=== PATIENT | female | born 1930 | race Caucasian/White ===

== ENCOUNTER 2017-08-26 11:06 | Inpatient (IN) | payer MEDICARE ==
[~2017-08-26] VITALS: Ht 162.6 cm; Wt 52.4 kg
[2017-08-26] MEDS ORDERED: IV NS 0.9% 1,000 ML BAG IV ONE ×2 (11:30→12:00)
--- NOTE | 2017-08-26 11:30 | NUR ---
incresing confusion and fever since this morning, nad noted, vss, resp even and unlabored. pt was put on hospital gown and monitor. at bs.
[2017-08-26 11:34] LABS: BASOPHILS % (AUTO) 0.2 % (0.0-2.0); EOSINOPHILS % (AUTO) 1.4 % (0.0-6.0); HEMATOCRIT 31 % (33-45); HEMOGLOBIN 10.3 g/dL (11.5-14.8); LYMPHOCYTES # (AUTO) 0.2 /CMM (0.8-4.8); LYMPHOCYTES % (AUTO) 1.9 % (20.0-44.0); MEAN CORPUSCULAR HGB CONC 34 g/dl (31.0-36.0); MEAN CORPUSCULAR VOLUME 87 fL (82-100); MONOCYTES % (AUTO) 0.2 % (2.0-12.0); NEUTROPHILS # (AUTO) 12.6 /CMM (1.8-8.9); NEUTROPHILS % (AUTO) 96.3 % (43.0-81.0); PLATELET COUNT (AUTO) 210 /CMM (150-450); RDW COEFFICIENT OF VARIATION 15.3 (11.5-15.0); RED BLOOD CELL COUNT(AUTO) 3.55 MIL/uL (4.0-5.2)
[2017-08-26 11:40] LABS: CALCIUM, SERUM 9.1 mg/dL (8.5-10.1); CARBON DIOXIDE 20 mmol/L (21-32); CHLORIDE 102 mmol/L (98-107); GLUCOSE 120 mg/dL (74-106); POTASSIUM 3.8 mmol/L (3.5-5.1); SODIUM SERUM 136 mmol/L (136-145); UREA NITROGEN, BLOOD 43 mg/dL (7-18)
[2017-08-26 11:46] LABS: ALANINE AMINOTRANSFERASE 25 U/L (12-78); ALBUMIN 2.7 g/dL (3.4-5.0); ALKALINE PHOSPHATASE 296 U/L (46-116); ASPARTATE AMINOTRANSFERASE 37 U/L (15-37); BILIRUBIN,DIRECT 0.2 mg/dL (0.0-0.2); BILIRUBIN,TOTAL 0.4 mg/dL (0.2-1.0); TOTAL PROTEIN, SERUM 7.8 g/dL (6.4-8.2)
[2017-08-26 11:55] LABS: INR 1.01 (0.85-1.15)
[2017-08-26] MEDS ORDERED: PIPERACILLIN /TAZOBACTAM 3.375 G in IV D5W 50 ML IV ONE (12:00)
[2017-08-26] MEDS ORDERED: LORA0.5T PO (12:05)
[2017-08-26] MEDS ORDERED: GABA-534 PO (12:05)
[2017-08-26] MEDS ORDERED: CITA20TA16 PO (12:05)
[2017-08-26 12:10] LABS: BAND % (MANUAL) 15 % (0.0-5.0); LYMPHOCYTES % (MANUAL) 3 % (16-48); MONOCYTES % (MANUAL) 1 % (0-11.0); NEUTROPHILS % (MANUAL) 81 (42-76)
[2017-08-26 12:16] LABS: APPEARANCE,URINE Clear (CLEAR); BILIRUBIN,URINE Negative (NEGATIVE); BLOOD, URINE Moderate Ery/uL (NEGATIVE); COLOR,URINE Yellow (YELLOW); KETONES,URINE Negative (NEGATIVE); LEUKOCYTE ESTERASE ,URINE Small (NEGATIVE); NITRITE, URINE Positive (NEGATIVE); PROTEIN,URINE 100 mg/dl (NEGATIVE); UGLUCOSE Negative (NEGATIVE); UROBILINOGEN,URINE 0.2 EU/dL (0.2)
[2017-08-26 12:28] LABS: BACTERIA,URINE 3+ /HPF (None Seen); WBC,URINE 21-50 /HPF (0-3)
[2017-08-26 12:29] LABS: SQUAMOUS EPITHELIAL CELL,UR Few /HPF (None Seen)
--- NOTE | 2017-08-26 12:41 | NUR ---
CALLED NURSE SUP FOR TELE BED
[2017-08-26] MEDS ORDERED: Z GUARD REMEDY 2 OZ OINT TP PRN (13:00)
[2017-08-26] MEDS ORDERED: MAG HYDROX/AL HYDROX/SIMETH 30 ML UDC PO PRN (13:00)
[2017-08-26] MEDS ORDERED: ZOLPIDEM TARTRATE 5 MG TABLET PO PRN (13:00)
[2017-08-26] MEDS ORDERED: ONDANSETRON HCL/PF 4 MG/2 ML VIAL IVP PRN (13:00)
[2017-08-26] MEDS ORDERED: MAGNESIUM HYDROXIDE 30 ML UDC PO PRN (13:00)
[2017-08-26] MEDS: ASPIRIN 325 MG TABLET PO SCH (13:58)
[2017-08-26 14:00] VITALS: BP 118/65
[2017-08-26] MEDS: IV NS 0.9% 1,000 ML IV PRN (14:00)
--- NOTE | 2017-08-26 14:00 | NUR ---
BUCKET CHUCKER OPENING NOTES. PT RECEIVED A&0X2, AND LETHARGIC. PT WITH FAMILY AT BEDSIDE REPORTING PT IS NORMALLY A&0X3 AND LIVES INDEPENDENTLY. PT WITH O2 VIA NC AT 3LPM, PT DENIES SOB AND SAO2 93%. PT DENIES PAIN. PT WITH L FA IVC G#20 INTACT AND SALINE FLUSH PATENT. TELE MONITORING COMMENCED PER . SKIN ASSESSMENT COMPLETE AND PHOTOS CHARTED. BELONGINGS LIST UPDATED. PT BED IN LOWEST LOCKED POSITION WITH HANDRAILSX3 AND CALL RICH WITHIN REACH. PT AND BRIEFED ON TODAY'S POC AND ARE WITHOUT CONCERN OR COMPLAINT AT THIS TIME.
--- NOTE | 2017-08-26 14:10 | NUR ---
LAUNCH CHECK OUT NOTES. PT WITH SEPSIS PROTOCOL. ER CONTACT TO CONFIRM INITIAL AND REASSESSMENT ARE COMPLETE. RN CONFIRMED COMPLETE.
[2017-08-26 16:27] VITALS: BP 101/56
--- NOTE | 2017-08-26 16:30 | NUR ---
FINISHING PAN OPERATOR NOTES. MD CONTACTED R/T VTE SCORE AND COMMENCING HOME MEDICATIONS IF NECESSARY, MD AWARE.
--- NOTE | 2017-08-26 18:28 | NUR ---
GREETER GUEST SERVICES CLOSING NOTES. PT REMAINS A&0X2, DTR JAMAR AT BEDSIDE. PT WITH TELE:SR95. PT WITH O2 VIA NC AT 3LPM, SO2 97%. PT NORMOTHERMIC 98.2F. PT DENIES PAIN. PT IVC AT L FA G#20 INTACT AND OPERATIONAL. PT WITH DIAPER FOR COMFORT. REPOSITIONED Q2HR OR SOONER. ALL DAY NURSE DUTIES ATTENDED TO AND PT AND FAMILY ARE WITHOUT CONCERN OR COMPLAINT AT THIS TIME. WILL ENDORSE TO NIGHT NURSE AT BEDSIDE FOR GUNNAR.
--- NOTE | 2017-08-26 19:35 | NUR ---
CAR WHACKER INITIAL NOTES PT IS IN BED SLEEPING, EASILY AROUSED. A/O X2. FAMILY IS AT BEDSIDE. NO SIGNS OF SOB OR DISTRESS, BREATHING EVENLY AND UNLABORED WITH NC. TELE MONITOR SHOWS SR 99 WITH TRIGEMINAL. IV ACCESS IS INTACT AND PATENT. BED IS IN LOW AND LOCKED POSITION, CALL LIGHT WITHIN REACH. WILL CONTINUE TO MONITOR PT
[2017-08-26 20:00] VITALS: BP 123/76
[2017-08-26] MEDS: GABAPENTIN 300 MG CAPSULE PO SCH (22:58)
--- NOTE | 2017-08-26 23:10 | NUR ---
ALARM OPERATOR NOTE CONTACTED [facility] JOINER DR. ANNE. PT HADN'T URINATED, BLADDER SCAN SHOWED [address] ANNE, TEIXEIRA WAS INSERTED
[2017-08-26] MEDS: HYDROCODONE/APAP 5/325MG 1 EACH TABLET PO PRN (23:58)
[2017-08-27] VITALS: BP 127/83
[2017-08-27] MEDS: IV NS 0.9% 1,000 ML IV PRN ×2 (00:02→17:05)
[2017-08-27 05:05] VITALS: BP 111/67
--- NOTE | 2017-08-27 06:30 | NUR ---
RETAIL PHARMACIST CLOSING NOTE PT IS IN BED SLEEPING, EASILY AROUSED WITH FAMILY AT BEDSIDE. NO SIGNS OF SOB OR DISTRESS, BREATHING EVENLY AND UNLABORED ON 2L NC. TELE MONITOR SHOWS SR 84 WITH TRIGEMINAL. IV ACCESS IS INTACT AND PATENT WITH FLUIDS INFUSING. TEIXEIRA CATHETER IS INTACT AND DRAINING. BED IS IN LOW AND LOCKED POSITION, CALL LIGHT WITHIN REACH. WILL ENDORSE TO DAYSHIFT.
[2017-08-27 06:31] LABS: EOSINOPHILS % (AUTO) 0.8 % (0.0-6.0); HEMATOCRIT 27 % (33-45); HEMOGLOBIN 8.8 g/dL (11.5-14.8); LYMPHOCYTES # (AUTO) 1.1 /CMM (0.8-4.8); LYMPHOCYTES % (AUTO) 6.6 % (20.0-44.0); MEAN CORPUSCULAR HGB CONC 33 g/dl (31.0-36.0); MEAN CORPUSCULAR VOLUME 88 fL (82-100); MONOCYTES # (AUTO) 0.2 /CMM (0.1-1.30); NEUTROPHILS # (AUTO) 15.2 /CMM (1.8-8.9); NEUTROPHILS % (AUTO) 91.6 % (43.0-81.0); PLATELET COUNT (AUTO) 193 /CMM (150-450); RDW COEFFICIENT OF VARIATION 16.7 (11.5-15.0); RED BLOOD CELL COUNT(AUTO) 3.03 MIL/uL (4.0-5.2); WHITE BLOOD COUNT (AUTO) 16.6 K/uL (4.3-11.0)
[2017-08-27 06:47] LABS: CARBON DIOXIDE 20 mmol/L (21-32); CHLORIDE 110 mmol/L (98-107); CREATININE 1.5 mg/dL (0.6-1.3); GLUCOSE 80 mg/dL (74-106); PHOSPHORUS 2.8 mg/dL (2.5-4.9); SODIUM SERUM 142 mmol/L (136-145); UREA NITROGEN, BLOOD 34 mg/dL (7-18)
[2017-08-27 08:00] VITALS: BP 113/66
--- NOTE | 2017-08-27 08:00 | NUR ---
MS RN OPENING NOTES Patient was seen resting comfortably in bed, AA&Ox3. Patient is on 3.5 L O2 NC with no SOB and no signs of acute distress. Patient is on court monitor in NSR. Peripheral IV left forearm running NS at 75 ml/hr. Bed is in low/locked position, two side rails up, call wong within reach. Daughter is at bedside. Will continue to monitor.
[2017-08-27] MEDS: GABAPENTIN 300 MG CAPSULE PO SCH ×3 (08:10→17:03)
[2017-08-27] MEDS: ASPIRIN 325 MG TABLET PO SCH (08:10)
[2017-08-27] MEDS: PANTOPRAZOLE 40 MG TABLET.DR PO SCH (08:11)
[2017-08-27 08:50] LABS: THYROID STIMULATING HORMONE 2.206 uIU/mL (0.358-3.74)
[2017-08-27 10:10] LABS: BAND % (MANUAL) 9 % (0.0-5.0); LYMPHOCYTES % (MANUAL) 7 % (16-48); MONOCYTES % (MANUAL) 1 % (0-11.0); NEUTROPHILS % (MANUAL) 83 (42-76)
--- NOTE | 2017-08-27 10:56 | NUR ---
MS RN MED ORDER Order entered for citalopram 20mg daily to start today - okay via text by Dr. Anderson. This is patient's regular home medication. Daughter by bedside was concerned about withdrawal symptoms from stopping medication, therefore med will be continued as usual.
[2017-08-27] MEDS: CITALOPRAM HYDROBROMIDE 20 MG TABLET PO SCH (12:27)
--- NOTE | 2017-08-27 18:48 | NUR ---
MS RN CLOSING NOTES Patient resting comfortably with daughter at bedside. No signs or symptoms of acute distress. Patient seen by Nephrology for UTI and ISHA; IV NS increased to 125 ml/hr; cates catheter remains in place. PT evaluation for tomorrow (08/28), discussed with patient, patient is agreeable. Patient remains on 3.5 L O2 NC, no SOB, vital signs remain WNL. Bed in low/locked position, two side rails up, call wong within reach. Care to be endorsed to shift supervisor RN.
[2017-08-27] MEDS: PIPERACILLIN /TAZOBACTAM 2.25 G in IV D5W 50 ML IV SCH (18:50)
[2017-08-27] MEDS: ACETAMINOPHEN 325 MG TABLET PO PRN (19:07)
--- NOTE | 2017-08-27 19:40 | NUR ---
MS RN INITIAL NOTE PT IS IN BED SLEEPING, EASILY AROUSED WITH FAMILY AT BEDSIDE. NO SIGNS OF SOB OR DISTRESS, BREATHING EVENLY AND UNLABORED ON 2L NC. IV ACCESS IS INTACT AND PATENT WITH FLUIDS INFUSING. TEIXEIRA CATHETER IS INTACT AND DRAINING. BED IS IN LOW AND LOCKED POSITION, CALL LIGHT WITHIN REACH. WILL CONTINUE TO MONITOR PT
[2017-08-27 20:00] VITALS: BP 103/57
[2017-08-28] MEDS: IV NS 0.9% 1,000 ML IV PRN ×2 (02:15→16:44)
[2017-08-28] MEDS: PIPERACILLIN /TAZOBACTAM 2.25 G in IV D5W 50 ML IV SCH ×5 (02:16→23:00)
--- NOTE | 2017-08-28 06:34 | NUR ---
MS RN CLOSING NOTE PT IS IN BED SLEEPING, EASILY AROUSED. NO SIGNS OF SOB OR DISTRESS, BREATHING EVENLY AND UNLABORED ON 2L NC. DENIES PAIN AT THIS TIME. IV ACCESS IS INTACT AND PATENT. NO ACUTE CHANGES THROUGHOUT THE SHIFT, PT SLEPT COMFORTABLY THROUGHOUT THE NIGHT. BED IS IN LOW AND LOCKED POSITION, CALL LIGHT WITHIN REACH. WILL ENDORSE TO DAYSHIFT
[2017-08-28 06:48] LABS: TROPONIN I 0.024 ng/mL (0.00-0.056)
[2017-08-28 06:49] LABS: ALANINE AMINOTRANSFERASE 22 U/L (12-78); ALKALINE PHOSPHATASE 194 U/L (46-116); ASPARTATE AMINOTRANSFERASE 25 U/L (15-37); BILIRUBIN,TOTAL 1.1 mg/dL (0.2-1.0); CALCIUM, SERUM 8.8 mg/dL (8.5-10.1); CARBON DIOXIDE 23 mmol/L (21-32); CHLORIDE 107 mmol/L (98-107); CREATININE 1.1 mg/dL (0.6-1.3); GLUCOSE 77 mg/dL (74-106); PHOSPHORUS 2.5 mg/dL (2.5-4.9); POTASSIUM 4.3 mmol/L (3.5-5.1); SODIUM SERUM 139 mmol/L (136-145); TOTAL PROTEIN, SERUM 6.8 g/dL (6.4-8.2); UREA NITROGEN, BLOOD 24 mg/dL (7-18)
[2017-08-28 07:07] LABS: EOSINOPHILS % (AUTO) 1.6 % (0.0-6.0); HEMATOCRIT 26 % (33-45); HEMOGLOBIN 8.5 g/dL (11.5-14.8); LYMPHOCYTES # (AUTO) 0.9 /CMM (0.8-4.8); LYMPHOCYTES % (AUTO) 6.2 % (20.0-44.0); MEAN CORPUSCULAR HGB CONC 33 g/dl (31.0-36.0); MEAN CORPUSCULAR VOLUME 88 fL (82-100); MONOCYTES # (AUTO) 0.1 /CMM (0.1-1.30); MONOCYTES % (AUTO) 0.8 % (2.0-12.0); NEUTROPHILS # (AUTO) 13.1 /CMM (1.8-8.9); NEUTROPHILS % (AUTO) 91.4 % (43.0-81.0); PLATELET COUNT (AUTO) 180 /CMM (150-450); RDW COEFFICIENT OF VARIATION 17.4 (11.5-15.0); RED BLOOD CELL COUNT(AUTO) 2.98 MIL/uL (4.0-5.2); WHITE BLOOD COUNT (AUTO) 14.4 K/uL (4.3-11.0)
[2017-08-28 08:00] VITALS: BP 109/63
[2017-08-28] MEDS: CITALOPRAM HYDROBROMIDE 20 MG TABLET PO SCH (09:12)
[2017-08-28] MEDS: ASPIRIN 325 MG TABLET PO SCH (09:12)
[2017-08-28] MEDS: PANTOPRAZOLE 40 MG TABLET.DR PO SCH (09:12)
[2017-08-28] MEDS: GABAPENTIN 300 MG CAPSULE PO SCH ×3 (09:12→18:34)
[2017-08-28 09:32] LABS: BAND % (MANUAL) 1 % (0.0-5.0); EOSINOPHILS % (MANUAL) 2 % (0-4); LYMPHOCYTES % (MANUAL) 11 % (16-48); MONOCYTES % (MANUAL) 2 % (0-11.0); NEUTROPHILS % (MANUAL) 84 (42-76)
[2017-08-28 10:05] VITALS: BP 108/60
[2017-08-28 10:07] VITALS: BP 122/60
[2017-08-28 10:11] VITALS: BP 122/67
--- NOTE | 2017-08-28 10:30 | NUR ---
RECEIVED PT. THIS AM ALERT AND ORIENTED X X2-3.O2 ON IV INFUSING.
[2017-08-28] MEDS: ACETAMINOPHEN 325 MG TABLET PO PRN (10:43)
[2017-08-28] MEDS ORDERED: NA PHOS,M-B/NA PHOS,DI-BA 1 EA ENEMA RC PRN (14:00)
[2017-08-28] MEDS ORDERED: PEG 3350/NA SULF,BICARB,CL/KCL 4,000 ML BOTTLE PO ONE (14:00)
[2017-08-28] MEDS ORDERED: MAGNESIUM CITRATE 296 ML BOTTLE PO ONE (14:00)
--- NOTE | 2017-08-28 14:30 | NUR ---
PT. UP WITH PHY. TX.TOLERATED FAIRLY WELL.
[2017-08-28] MEDS: SOD FERRIC GLUC 125 MG in IV NS 0.9% 100 ML IV SCH (14:33)
[2017-08-28] MEDS: HYDROCODONE/APAP 5/325MG 1 EACH TABLET PO PRN (15:44)
[2017-08-28 16:00] VITALS: BP 111/68
--- NOTE | 2017-08-28 16:00 | NUR ---
MED. X2 FOR LT. LOWER QUADRANT PAIN.MDS IN TO SEE PT. DR. GARCIA AND COAT PRESSER Lashonda MARION AND COAT PRESSER FOR DR. PEPE.ORDERS WRITTEN FAMILY WAITING FOR SIGNING OF CONSENTS FOR GI PROCEDURES TILL SPEAKING TO GI PERSON.CALL TO DTR. IN LAW AND DISCUSSED NEED FOR PROCEDURES.CAT SCAN OF ABD. DONE.
--- NOTE | 2017-08-28 18:20 | NUR ---
SON SIGNED CONSENT FOR EGD ONLY ALONG WITH BLOOD CONSENT.
--- NOTE | 2017-08-28 19:20 | NUR ---
MS RN OPENING NOTE RECEIVED PATIENT IN BED, ALERT ORIENTED X2-3. ON 2L O2 VIA NC. TOLERATES WELL, DENIES SOB OR CHEST PAIN AT THIS TIME. IN NO APPARENT DISTRESS OR DISCOMFORT, RESPIRATIONS EVEN AND UNLABORED. PATIENT STATES SHE WANTS TO SLEEP A LITTLE AND REST. ABLE TO VERBALIZE NEEDS, HOWEVER OCCASIONAL CONFUSION AND FORGETFULNESS IS PRESENT. SON AT BEDSIDE. PATIENT WITH LEFT FA IV SITE 20G, FLASHED WITH NS, PATENT AND INTACT. BEDSIDE COMMODE OBSERVED. TEIXEIRA CATHETER IN PLACE WITH SLIGHTLY CLOUDY, YELLOW OUTPUT. SAFETY MEASURES IN PLACE, BED IN LOW LOCKED POSITION, SIDE RAILS UP X2, CALL LIGHT WITHIN EASY REACH, WILL CONTINUE TO MONITOR.
[2017-08-28 20:00] VITALS: BP 112/62
[2017-08-28] MEDS ORDERED: NITROFURANTOIN/NITROFURAN MAC 100 MG CAPSULE PO SCH (21:00)
[2017-08-29] MEDS: PIPERACILLIN /TAZOBACTAM 2.25 G in IV D5W 50 ML IV SCH ×4 (05:11→23:23)
--- NOTE | 2017-08-29 06:33 | NUR ---
MS RN CLOSING NOTE PATIENT IN BED, SLEEPING, AROUSED EASILY WITH VERBAL AND TACTILE STIMULI, ORIENTED X3. ON 3.5L O2 VIA NC. TOLERATES WELL, DENIES SOB OR CHEST PAIN AT THIS TIME. IN NO APPARENT DISTRESS OR DISCOMFORT, RESPIRATIONS EVEN AND UNLABORED. PATIENT AWARE OF THE SCHEDULED PROCEDURE. ABLE TO VERBALIZE NEEDS. PATIENT WITH LEFT FA IV SITE 20G IV FLUIDS RUNNING AT 125ML/HR, AND RIGHT FA IV SITE 22G SL, FLASHED WITH NS, PATENT AND INTACT. BEDSIDE COMMODE OBSERVED. PATIENT IS ON NPO STATUS SINCE MIDNIGHT. TEIXEIRA CATHETER IN PLACE WITH 500CC OUTPUT OF SLIGHTLY CLOUDY, YELLOW URINE. PATIENT SLEPT THROUGH THE NIGHT WELL, ALL NEEDS ARE ATTENDED, SAFETY MEASURES IN PLACE, BED IN LOW LOCKED POSITION, SIDE RAILS UP X2, CALL LIGHT WITHIN EASY REACH, WILL ENDORSE TO AM NURSE FOR GUNNAR.
[2017-08-29 06:38] LABS: BASOPHILS % (AUTO) 0.1 % (0.0-2.0); EOSINOPHILS % (AUTO) 1.7 % (0.0-6.0); HEMATOCRIT 25 % (33-45); HEMOGLOBIN 8.1 g/dL (11.5-14.8); LYMPHOCYTES % (AUTO) 9.3 % (20.0-44.0); MEAN CORPUSCULAR HGB CONC 32 g/dl (31.0-36.0); MEAN CORPUSCULAR VOLUME 88 fL (82-100); MONOCYTES # (AUTO) 0.4 /CMM (0.1-1.30); MONOCYTES % (AUTO) 3.9 % (2.0-12.0); NEUTROPHILS # (AUTO) 8.7 /CMM (1.8-8.9); PLATELET COUNT (AUTO) 195 /CMM (150-450); RDW COEFFICIENT OF VARIATION 16.7 (11.5-15.0); RED BLOOD CELL COUNT(AUTO) 2.87 MIL/uL (4.0-5.2); WHITE BLOOD COUNT (AUTO) 10.2 K/uL (4.3-11.0)
[2017-08-29 06:52] LABS: ALANINE AMINOTRANSFERASE 43 U/L (12-78); ALBUMIN 1.9 g/dL (3.4-5.0); ALKALINE PHOSPHATASE 364 U/L (46-116); ASPARTATE AMINOTRANSFERASE 31 U/L (15-37); BILIRUBIN,DIRECT 0.2 mg/dL (0.0-0.2); BILIRUBIN,TOTAL 0.4 mg/dL (0.2-1.0); CALCIUM, SERUM 8.5 mg/dL (8.5-10.1); CARBON DIOXIDE 21 mmol/L (21-32); CHLORIDE 109 mmol/L (98-107); CREATININE 0.5 mg/dL (0.6-1.3); GLUCOSE 95 mg/dL (74-106); MAGNESIUM 1.9 mg/dL (1.8-2.4); PHOSPHORUS 2.5 mg/dL (2.5-4.9); POTASSIUM 3.7 mmol/L (3.5-5.1); SODIUM SERUM 139 mmol/L (136-145); TOTAL PROTEIN, SERUM 6.1 g/dL (6.4-8.2); UREA NITROGEN, BLOOD 14 mg/dL (7-18)
[2017-08-29 07:08] LABS: *SPE A/G RATIO 0.8 (0.7-1.7); *SPE ALBUMIN 2.5 g/dL (2.9-4.4); *SPE ALPHA-1-GLOBULIN 0.4 g/dL (0.0-0.4); *SPE BETA GLOBULIN 0.9 g/dL (0.7-1.3); *SPE GLOBULIN, TOTAL 3.1 g/dL (2.2-3.9); *SPE M-SPIKE Not Observed g/dL (Not Observed); *SPEGAMMA GLOBULIN 0.8 g/dL (0.4-1.8)
--- NOTE | 2017-08-29 07:30 | NUR ---
pt. npo for gi procedure.
[2017-08-29 08:00] VITALS: BP 131/71
--- NOTE | 2017-08-29 08:34 | NUR ---
DR. HIGH'S INSPECTOR BALANCE TRUING LEIGHTON CALLED TO FEED PT WITH BREAKFAST ( SAME DIET BEFORE) AND START NPO AFTER, GI PROCEDURE WILL BE DONE AT 3 PM TODAY.
[2017-08-29] MEDS: ASPIRIN 325 MG TABLET PO SCH (09:00)
[2017-08-29] MEDS: CITALOPRAM HYDROBROMIDE 20 MG TABLET PO SCH (09:06)
[2017-08-29] MEDS: PANTOPRAZOLE 40 MG VIAL IV SCH (09:06)
[2017-08-29] MEDS: GABAPENTIN 300 MG CAPSULE PO SCH ×3 (09:06→18:17)
--- NOTE | 2017-08-29 09:30 | NUR ---
kaila. small amt. clear liquids.
--- NOTE | 2017-08-29 15:00 | NUR ---
surgery delayed again-text to [facility] edger machine helper and now surgery to be done tomorrow.additionally son states dr. osei to possibly do gu procedure for kidney stones on pt.to be given regular diet for dinner and npo after midnight.contacted tom edger machine helper for iv pain med if needed.
[2017-08-29] MEDS: SOD FERRIC GLUC 125 MG in IV NS 0.9% 100 ML IV SCH (15:16)
[2017-08-29 16:00] VITALS: BP 145/74
[2017-08-29] MEDS ORDERED: MORPHINE SULFATE INJ 2 MG/ML DISP.SYRIN IV PRN (16:30)
[2017-08-29] MEDS ORDERED: FENTANYL PF 100MCG/2ML AMPUL IV PRN ×2 (17:00)
[2017-08-29] MEDS: HYDROCODONE/APAP 5/325MG 1 EACH TABLET PO PRN (18:16)
[2017-08-29 19:00] VITALS: BP 125/64
--- NOTE | 2017-08-29 19:00 | NUR ---
medicated with norco for back pain.
--- NOTE | 2017-08-29 19:35 | NUR ---
RN MS OPENING NOTES RECEIVED PATIENT IN BED AWAKE ALERT AND VERBALLY RESPONSIVE, RESPIRATIONS EVEN AND UNLABORED, ON 02 VIA NASAL CANNULA, DENIES ANY COMPLAINTS OF PAIN OR DISCOMFORT AT THIS TIME, TEIXEIRA CATHETER INTACT AND FLOWING WELL, URINE YELLOW, IV SITE TO RIGHT ARM 22 GAUGE AND LEFT FOREARM 20 GAUGE, IVF FLUIDS RUNNING ORDERED, NO REDNESS , NO INFILTRATION TO IV SITES, SAFETY MEASURES IN PLACE, CALL LIGHT KEPT WITHIN REACH WILL CONTINUE TO MONITOR.
[2017-08-29 20:00] VITALS: BP 125/64
--- NOTE | 2017-08-29 20:06 | NUR ---
RN JAMESON PEPE CALLED AND GAVE AN ORDER TO PUT PT ON NPO POST MIDNIGHT, ORDER NOTED AND CARRIED OUT
[2017-08-29] MEDS: IV NS 0.9% 1,000 ML IV PRN (20:14)
[2017-08-29] MEDS: diphenhydrAMINE HCL 50 MG CAPSULE PO PRN (22:51)
--- NOTE | 2017-08-29 22:55 | NUR ---
RN MS NOTES PATIENT REQUESTING FOR BENADRYL FOR SLEEP PRN GIVEN ORDERED WITH SMALL SIP OF WATER.
[2017-08-30] VITALS (17 sets, daily range): BP systolic 113–145; BP diastolic 58–81
[2017-08-30] MEDS: HYDROCODONE/APAP 5/325MG 1 EACH TABLET PO PRN ×2 (00:44→19:50)
--- NOTE | 2017-08-30 00:47 | NUR ---
RN MS NOTES PATIENT COMPLAIN OF PAIN TO LEFT HIP ADULT SCALE 7, NORCO PRN GIVEN ORDERED,WILL CONTINUE TO MONITOR RESPIRATIONS NOTED AT 18 NO DISTRESS NOTED , PATIENT IS EASILY AROUSABLE,CALL LIGHT WITHIN REACH .
[2017-08-30] MEDS: PIPERACILLIN /TAZOBACTAM 2.25 G in IV D5W 50 ML IV SCH ×4 (05:18→23:07)
[2017-08-30] MEDS: IV NS 0.9% 1,000 ML IV PRN ×2 (05:53→21:19)
[2017-08-30 06:13] LABS: CALCIUM, SERUM 8.2 mg/dL (8.5-10.1); CARBON DIOXIDE 22 mmol/L (21-32); CHLORIDE 110 mmol/L (98-107); CREATININE 0.7 mg/dL (0.6-1.3); GLUCOSE 91 mg/dL (74-106); MAGNESIUM 1.7 mg/dL (1.8-2.4); PHOSPHORUS 2.8 mg/dL (2.5-4.9); POTASSIUM 3.6 mmol/L (3.5-5.1); SODIUM SERUM 140 mmol/L (136-145); UREA NITROGEN, BLOOD 10 mg/dL (7-18)
[2017-08-30 06:19] LABS: BASOPHILS % (AUTO) 0.2 % (0.0-2.0); EOSINOPHILS % (AUTO) 1.5 % (0.0-6.0); HEMATOCRIT 24 % (33-45); HEMOGLOBIN 7.9 g/dL (11.5-14.8); LYMPHOCYTES # (AUTO) 1.1 /CMM (0.8-4.8); LYMPHOCYTES % (AUTO) 13.5 % (20.0-44.0); MEAN CORPUSCULAR HGB CONC 33 g/dl (31.0-36.0); MEAN CORPUSCULAR VOLUME 87 fL (82-100); MONOCYTES # (AUTO) 0.6 /CMM (0.1-1.30); MONOCYTES % (AUTO) 7.4 % (2.0-12.0); NEUTROPHILS # (AUTO) 6.5 /CMM (1.8-8.9); NEUTROPHILS % (AUTO) 77.4 % (43.0-81.0); PLATELET COUNT (AUTO) 208 /CMM (150-450); RDW COEFFICIENT OF VARIATION 16.8 (11.5-15.0); RED BLOOD CELL COUNT(AUTO) 2.78 MIL/uL (4.0-5.2); WHITE BLOOD COUNT (AUTO) 8.3 K/uL (4.3-11.0)
--- NOTE | 2017-08-30 06:40 | NUR ---
RN MS CLOSING NOTES PATIENT IN BED AWAKE ALERT AND VERBALLY RESPONSIVE, RESPIRATIONS EVEN AND UNLABORED, ON 02 VIA NASAL CANNULA 3LITERS, DENIES ANY COMPLAINTS OF PAIN OR DISCOMFORT AT THIS TIME, TEIXEIRA CATHETER INTACT AND FLOWING WELL, URINE YELLOW, IV SITE TO RIGHT ARM 22 GAUGE AND LEFT FOREARM 20 GAUGE, IVF FLUIDS RUNNING ORDERED, NO REDNESS , NO INFILTRATION TO IV SITES, SAFETY MEASURES IN PLACE, PATIENT IS NPO AT THIS TIME,CALL LIGHT KEPT WITHIN REACH WILL CONTINUE TO MONITOR AND ENDORSE TO NEXT SHIFT.
--- NOTE | 2017-08-30 07:25 | NUR ---
RN NOTES CALLED AND SPOKE TO NATALYA LANTIGUA REGARDING EGD PROCEDURE, VERBALIZES HE UNDERSTANDS , SON WILL COME HERE.
--- NOTE | 2017-08-30 08:00 | NUR ---
MS RN OPENING NOTES Patient was found sleeping in bed but opened eyes to name. She is AAOx3, breathing on 3.5 L O2 NC with no SOB sat 97%, no signs of acute distress. Pineda cath is draining clear yellow urine. Peripheral left FA IV running NS at 125 ml/hr. Patient has remained NPO for EGD this AM. Bed is in low/locked position, two side rails up, call wong within reach.
--- NOTE | 2017-08-30 08:25 | NUR ---
MS RN NOTE - LEFT FOR EGD Patient was taken for EGD by surgical team. Vital signs WNL, procedure check-list and consent signed/completed. Patient transferred on [facility] with O2 tank connected to [place].
[2017-08-30] MEDS: GABAPENTIN 300 MG CAPSULE PO SCH ×3 (09:00→16:40)
[2017-08-30] MEDS: ASPIRIN 325 MG TABLET PO SCH (09:00)
[2017-08-30] MEDS: CITALOPRAM HYDROBROMIDE 20 MG TABLET PO SCH (09:00)
--- NOTE | 2017-08-30 09:30 | NUR ---
MS RN NOTE - RETURN FROM EGD Patient returned from EGD in stable condition, vital signs WNL. Patient is sleepy but becomes AAOx3 when called by name. Patient was reconnected to 3L wall O2 NC and reconnected to NS at 125 ml/hr. Son and daughter at bedside. Will continue to monitor vitals at frequency of q15min x4, q30min x2, and q1hr x4.
[2017-08-30] MEDS: Magnesium 1GM/D5W 100ML PREMIX 100 ML IV SCH ×2 (09:48→15:08)
[2017-08-30] MEDS: PANTOPRAZOLE 40 MG VIAL IV SCH (09:48)
[2017-08-30] MEDS ORDERED: IOHEXOL 240MG/ML 0 ML IV ONE (10:04)
[2017-08-30] MEDS ORDERED: LIDOCAINE 2% JEL 5 ML TUBE ONE (10:04)
--- NOTE | 2017-08-30 15:00 | NUR ---
MS RN NOTE - RETURN FROM PROCEDURE Patient returned from cystoscopy AAOx3, breathing comfortably on 3 L O2 NC sat 94%, no signs of acute distress. Vitals WNL. Patient reconnected to NS at 125 ml/hr. Pineda cath draining clear yellow urine. All post-op orders acknowledged and carried out. Will monitor vitals at frequency of q15min x4, q30min x2, and q1hr x4.
[2017-08-30] MEDS: SOD FERRIC GLUC 125 MG in IV NS 0.9% 100 ML IV SCH (16:39)
--- NOTE | 2017-08-30 18:39 | NUR ---
MS RN CLOSING NOTES Patient is resting comfortably in bed AAOx3, on 3L O2 NC with no SOB, and no signs of acute distress, vital signs WNL throughout shift. Patient on clear liquids to advance as tolerated. Pineda catheter is draining clear yellow urine and is to be removed tomorrow (08/31) AM. Peripheral left FA IV is running Zosyn. Bed is in low/locked position, three side rails up, call wong within reach. Orders and patient needs carried out. Patient care to be endorsed to manager shift nurse.
--- NOTE | 2017-08-30 19:35 | NUR ---
RN MS OPENING NOTES RECEIVED PATIENT IN BED, AWAKE, ALERT AND ORIENTED X 3, VERBALLY RESPONSIVE , RESPIRATIONS EVEN AND UNLABORED ON 02 VIA NC AT 3LITERS, TEIXEIRA CATHETER INTACT, FLOWING WELL, URINE YELLOW, PT ON CLEAR DIET ADVANCED TOLERATED, FLUIDS OFFERED, DENIES AND PAIN AT THIS TIME, IV SITES TO LEFT FA 20 GAUGE AND RIGHT AC 22 GAUGE, INTACT AND PATENT, NO REDNESS , NO INFILTRATION TO SITES PRESENT. IVF FLUIDS RUNNING ORDERED. ORIENTED TO STAFF, SAFETY MEASURES IN PLACE CALL LIGHT KEPT WITHIN REACH, WILL CONTINUE TO MONITOR.
--- NOTE | 2017-08-30 19:40 | NUR ---
ROSENDO MS OPENING NOTES RECEIVED PATIENT IN BED AWAKE ALERT AND VERBALLY RESPONSIVE, RESPIRATIONS EVEN AND UNLABORED,DENIES ANY PAIN OR DISCOMFORT AT THIS TIME, DENIES NAUSEA AT THIS TIME, ON CLEAR LIQUID DIET TOLERATED,IV SITE TO LEFT HAND 20 GAUGE INTACT AND PATENT , NO REDNESS NO INFILTRATION TO SITE,IVF RUNNING ORDERED. ORIENTED TO STAFF, SAFETY MEASURES IN PLACE CALL LIGHT KEPT WITHIN REACH WILL CONTINUE TO MONITOR. Addendum: 08/30/17 at 2154 by BUSHRA PAGAN RN DISREGARD NOTES WRONG ENTRY.
--- NOTE | 2017-08-30 19:50 | NUR ---
RN MS NOTES PATIENT COMPLAINT OF PAIN TO LEFT HIP AREA, OFFERED NORCO PRN ORDERED, PATIENT WANTS NORCO, WILL CONTINUE TO MONITOR EFFECTIVENESS.
--- NOTE | 2017-08-30 20:50 | NUR ---
RN MS NOTES PATIENT REASSESSED , NOTED SLEEPING RESTING BUT EASILY AROUSABLE, PAIN MEDICATION EFFECTIVE, DENIES PAIN AT THIS TIME, RESPIRATION EVEN AN UNLABORED 18. CALL LIGHT KEPT WITHIN REACH.
--- NOTE | 2017-08-31 01:30 | NUR ---
RN MS NOTES PATIENT REQUESTING BENADRYL PRN , GIVEN ORDERED, RESPIRATIONS EVEN AND UNLABORED 18. WILL CONTINUE TO MONITOR
[2017-08-31] MEDS: diphenhydrAMINE HCL 50 MG CAPSULE PO PRN (01:31)
[2017-08-31] MEDS: PIPERACILLIN /TAZOBACTAM 2.25 G in IV D5W 50 ML IV SCH ×3 (05:18→17:09)
[2017-08-31 06:21] LABS: BASOPHILS % (AUTO) 0.3 % (0.0-2.0); EOSINOPHILS % (AUTO) 0.1 % (0.0-6.0); HEMATOCRIT 24 % (33-45); HEMOGLOBIN 7.8 g/dL (11.5-14.8); LYMPHOCYTES # (AUTO) 0.9 /CMM (0.8-4.8); LYMPHOCYTES % (AUTO) 11.1 % (20.0-44.0); MEAN CORPUSCULAR HGB CONC 33 g/dl (31.0-36.0); MEAN CORPUSCULAR VOLUME 87 fL (82-100); MONOCYTES # (AUTO) 0.6 /CMM (0.1-1.30); MONOCYTES % (AUTO) 6.6 % (2.0-12.0); NEUTROPHILS % (AUTO) 81.9 % (43.0-81.0); PLATELET COUNT (AUTO) 259 /CMM (150-450); RED BLOOD CELL COUNT(AUTO) 2.74 MIL/uL (4.0-5.2); WHITE BLOOD COUNT (AUTO) 8.5 K/uL (4.3-11.0)
--- NOTE | 2017-08-31 06:25 | NUR ---
RN MS NOTES TEIXEIRA CATHETER REMOVED ORDERED IN AM , TOLERATED WELL, URINE YELLOW, CLEAR, WILL CONTINUE TO MONITOR FOR ANY RETENTION ABDOMEN SOFT, NON DISTENDED, 210 CC IN TEIXEIRA BAG BEFORE REMOVAL.
[2017-08-31] MEDS: IV NS 0.9% 1,000 ML IV PRN (06:32)
--- NOTE | 2017-08-31 06:40 | NUR ---
RN MS CLOSING NOTES PATIENT IN BED, AWAKE, ALERT AND ORIENTED X 3, VERBALLY RESPONSIVE , RESPIRATIONS EVEN AND UNLABORED ON 02 VIA NC AT 3LITERS, TEIXEIRA CATHETER DISCONTINUED ORDERED, URINE YELLOW, PT ON CLEAR DIET ADVANCED TOLERATED, FLUIDS OFFERED, DENIES AND PAIN AT THIS TIME, IV SITES TO LEFT FA 20 GAUGE AND RIGHT AC 22 GAUGE, INTACT AND PATENT, NO REDNESS , NO INFILTRATION TO SITES PRESENT. IVF FLUIDS RUNNING ORDERED. SAFETY MEASURES IN PLACE CALL LIGHT KEPT WITHIN REACH, WILL CONTINUE TO MONITOR AND ENDORSE TO NEXT SHIFT.
[2017-08-31 06:48] LABS: ALANINE AMINOTRANSFERASE 29 U/L (12-78); ALBUMIN 1.9 g/dL (3.4-5.0); ALKALINE PHOSPHATASE 319 U/L (46-116); ASPARTATE AMINOTRANSFERASE 23 U/L (15-37); BILIRUBIN,TOTAL 0.3 mg/dL (0.2-1.0); CALCIUM, SERUM 8.5 mg/dL (8.5-10.1); CARBON DIOXIDE 24 mmol/L (21-32); CHLORIDE 108 mmol/L (98-107); CREATININE 0.5 mg/dL (0.6-1.3); GLUCOSE 138 mg/dL (74-106); MAGNESIUM 2.9 mg/dL (1.8-2.4); PHOSPHORUS 2.8 mg/dL (2.5-4.9); POTASSIUM 3.6 mmol/L (3.5-5.1); SODIUM SERUM 141 mmol/L (136-145); TOTAL PROTEIN, SERUM 6.1 g/dL (6.4-8.2); UREA NITROGEN, BLOOD 8 mg/dL (7-18)
[2017-08-31 07:57] VITALS: BP 138/76
--- NOTE | 2017-08-31 08:00 | NUR ---
RN NOTES PATIENT A/OX4, VERBALLY RESPONSIVE, PATIENT SEEN BY DR. GARCIA, WEAN OFF FROM OXYGEN, PATIENT IN ROOM AIR WITH SPO2 OF 89-92%, PATIENT TAUGHT BREATHING EXERCISES, GIVEN INCENTIVE SPIROMETER, ABLE TO RETURN DEMONSTRATION. SPO2 WILL BE CLOSELY MONITORED. PATIENT DENIES PAIN AT THIS TIME, PER FAMILY AT BEDSIDE, PATIENT TOLERATED CLEAR LIQUID LAST NIGHT, DIET ADVANCED TO SOFT DIET. NEEDS ATTENDED AND MET, CALL LIGHT WITHIN REACH, WILL CONTINUE TO MONITOR.
[2017-08-31] MEDS: GABAPENTIN 300 MG CAPSULE PO SCH ×3 (08:59→16:42)
[2017-08-31] MEDS: ASPIRIN 325 MG TABLET PO SCH (08:59)
[2017-08-31] MEDS: PANTOPRAZOLE 40 MG TABLET.DR PO SCH (08:59)
[2017-08-31] MEDS: CITALOPRAM HYDROBROMIDE 20 MG TABLET PO SCH (08:59)
--- NOTE | 2017-08-31 11:00 | NUR ---
RN NOTES PATIENT'S O2 IN ROOM AIR SHOWS 86-89% AT REST. INFORMED ALDO CERTIFIED TECHNICIAN. PER CERTIFIED TECHNICIAN PLACE O2 BACK ON THE PATIENT AT 2LPM VIA NC. PATIENT HAS HAD NO URINE OUTPUT AT THIS TIME, ALDO GARCIA GAVE INSTRUCTION TO DO A BLADDER SCAN, THE SCAN SHOWS > 200. NO BLADDER DISTENTION NOTED, PATIENT DENIES PAIN. WILL INFORM ALDO CERTIFIED TECHNICIAN.
[2017-08-31] MEDS ORDERED: HYDR-3972 PO (11:12)
[2017-08-31] MEDS ORDERED: IRON1TAB96 PO (11:12)
[2017-08-31] MEDS ORDERED: LEVO500T75 PO (11:12)
[2017-08-31] MEDS ORDERED: ASPI-992 PO (11:12)
--- NOTE | 2017-08-31 11:30 | NUR ---
RN NOTES PATIENT ASSISTED TO THE TOILET, AND WAS ABLE TO VOID. VOID TRIAL SUCCESSFUL. PATIENT IS IN NO DISTRESS, PLACED ON A CHAIR AND KEPT COMFORTABLE. FAMILY AT BEDSIDE. WILL CONTINUE TO MONITOR.
--- NOTE | 2017-08-31 12:49 | NUR ---
RN NOTES PATIENT'S FAMILY STATED PATIENT ONLY TAKES GABAPENTIN BID AT HOME, ALDO GARCIA MADE AWARE AND GAVE AN ORDER TO ADJUST MEDICATION ORDER. ALSO, PATIENT'S FAMILY HAS DECIDED TO STAY ONE MORE DAY AND TO GO HOME TOMORROW. ALDO GARCIA CANCELLED THE DISCHARGE ORDER.
[2017-08-31] MEDS: SOD FERRIC GLUC 125 MG in IV NS 0.9% 100 ML IV SCH (13:31)
[2017-08-31 16:24] VITALS: BP 135/79
--- NOTE | 2017-08-31 18:53 | NUR ---
RN NOTES PATIENT A/OX4, BREATHING EVEN AND UNLABORED, ON O2 AT 2LPM VIA NC TO KEEP O2 SAT > 92%, NO SOB NOTED, PATIENT IS IN NO DISTRESS, NO SIGNIFICANT CHANGE THROUGHOUT THE SHIFT, DENIES PAIN AT THIS TIME, PATIENT ASSISTED WITH ADLS AND WAS ABLE TO VOID, PATIENT TOLERATING CURRENT DIET, LFA #20 AND RFA #20 PATENT AND FLUSHES WELL. ALL NEEDS ATTENDED AND MET, CALL LIGHT WITHIN REACH, WILL ENDORSE TO AUTOMATIC MAINTAINER FOR GUNNAR.
--- NOTE | 2017-08-31 19:30 | NUR ---
MS RN OPENING NOTES: PATIENT IN BED, AOX4, ON O2 AT 1 LPM VIA NC, BREATHING EVEN AND UNLABORED. NO SOB OR SIGNS OF RESPI DISTRESS NOTED. APPEARS CALM AND IN NO DISTRESS, DENIES PAIN AT THIS TIME. PIV OVER LFA G 20 INTACT AND PATENT TO FLUSH. PROVIDED FOR COMFORT AND SAFETY. BED IN LOWEST AND LOCKED POSITION, SIDERAILS UP X 3, CALL LIGHT WITHIN REACH. WILL CONT TO MONITOR.
[2017-08-31 19:52] VITALS: BP 116/60
[2017-08-31 20:00] VITALS: BP 116/60
--- NOTE | 2017-08-31 22:00 | NUR ---
RN NOTES: CHECKED O2 SAT FOR PATIENT AT 1 LPM VIA NC, O2 SAT IS ONLY 91-92%. INCREASED BACK TO 2 LPM, RECHECKED O2 SAT AT 94%.
[2017-09-01] MEDS: PIPERACILLIN /TAZOBACTAM 2.25 G in IV D5W 50 ML IV SCH ×3 (00:05→11:07)
[2017-09-01 06:00] VITALS: BP 144/72
--- NOTE | 2017-09-01 06:34 | NUR ---
MS RN CLOSING NOTES: PATIENT IN BED, AOX4, ON O2 AT 2 LPM VIA NC, BREATHING EVEN AND UNLABORED. APPEARS CALM AND IN NO DISTRESS, DENIES PAIN. PIV OVER LFA G 20 INTACT AND PATENT TO FLUSH. DUE MEDS GIVEN. PROVIDED FOR COMFORT AND SAFETY. BED IN LOWEST AND LOCKED POSITION, SIDERAILS UP X 3, CALL LIGHT WITHIN REACH. NO ACUTE CHANGE IN CONDITION NOTED THROUGH SHIFT. WILL ENDORSE TO AM RN FOR GUNNAR.
--- NOTE | 2017-09-01 07:35 | NUR ---
MS RN NOTES PATIENT RECEIVED RESTING INSIDE ROOM, SLEEPING, AROUSABLE THROUGH VERBAL AND TACTILE STIMULI. BREATHING EVEN AND UNLABORED. NO SOB OR ACUTE DISTRESS NOTED. PATIENT DENIES ANY PAIN OR DISCOMFORT. IV SITE ON LFA INTACT AND PATENT, NO SWELLING OR BLEEDING NOTED AT THIS TIME. WILL CONTINUE TO MONITOR. BED LOCKED AND IN LOW POSITION. BILATERAL SIDE RAILS UP AND LOCKED. CALL LIGHT WITHIN EASY REACH
[2017-09-01] MEDS: PANTOPRAZOLE 40 MG TABLET.DR PO SCH (08:24)
[2017-09-01] MEDS: GABAPENTIN 300 MG CAPSULE PO SCH (08:24)
[2017-09-01] MEDS: CITALOPRAM HYDROBROMIDE 20 MG TABLET PO SCH (08:24)
[2017-09-01] MEDS: ASPIRIN 325 MG TABLET PO SCH (08:24)
[2017-09-01 08:42] VITALS: BP 144/73
--- NOTE | 2017-09-01 10:00 | NUR ---
MS RN NOTES PATIENT SEEN AND EXAMINED BY ALDO MARION NP. SON (NATALYA) AND AT BEDSIDE. DISCHARGE PLAN DISCUSSED AND FAMILY AGREED FOR PATIENT TO BE DISCHARGED HOME. WILL CONTINUE TO MONITOR
--- NOTE | 2017-09-01 11:30 | NUR ---
MS RN NOTES ACCOUNTING MANAGER ASSISTANT CONTROLLER AT BEDSIDE. HOME HEALTH DISCUSSED WITH FAMILY. OFFERED WITH TRANSPORTATION BUT FAMILY VERBALIZED THEY PREFER PERSONAL VEHICLE FOR TRANSPORTATION. OXYGEN CONCENTRATOR TO BE DELIVERED AT PATIENT'S HOME, PATIENT WITH BE DISCHARGED WITH OXYGEN TANK FOR TRANSPORTATION. FAMILY VERBALIZED UNDERSTANDING. OXYGEN SET-UP AND USE DEMONSTRATED TO PATIENT AND FAMILY. VERBALIZED UNDERSTANDING. PATIENT AND FAMILY AGREED FOR PATIENT TO BE DISCHARGED ONCE OXYGEN CONCENTRATOR IS DELIVERED AT HOME. WILL CONTINUE TO MONITOR
--- NOTE | 2017-09-01 14:01 | NUR ---
MS RN NOTES PATIENT FOR DISCHARGE HOME. DISCHARGE TEACHING AND INSTRUCTIONS PROVIDED TO PATIENT AND FAMILY, VERBALIZED UNDERSTANDING. PATIENT AFEBRILE, SKIN DRY AND WARM TO TOUCH. PATIENT LEFT UNIT AT 1350 VIA WHEELCHAIR, IV REMOVED WITH MINIMAL BLEEDING NOTED, PRESSURE DRESSING PLACED. PATIENT ACCOMPANIED DURING DISCHARGE. LEFT VIA PRIVATE VEHICLE, LEFT WITH NATALYA (SON). NO NEW SKIN BREAKDOWN NOTED UPON DISCHARGE. ALL BELONGINGS COMPLETE UPON DISCHARGE. NO REPORT OF MISSING BELONGINGS. ALDO MARION NP AWARE OF DISCHARGE
[2017-09-09] MEDS ORDERED: LINE600T PO (12:01)
[2017-09-09] MEDS ORDERED: LACT1CAP71 PO (12:01)
== END 2017-09-01 13:58 | disposition home health service (06) | DRG 871 ==
LOC: ER 11:12 → TELE 13:17 → MED 08-27 08:23
PROVIDERS: ADMIT Internal Medicine; ATTEND Internal Medicine
PROC: 0DB68ZX Excision of Stomach, Via Natural or Artificial Opening Endoscopic, Diagnostic (ICD-10-PCS; 2017-08-30)
PROC: 0T788DZ Dilation of Bilateral Ureters with Intraluminal Device, Via Natural or Artificial Opening Endoscopic (ICD-10-PCS; principal; 2017-08-30 08:30)
DX: A41.50 Gram-negative sepsis, unspecified (principal); I21.A1 Myocardial infarction type 2; N17.0 Acute kidney failure with tubular necrosis; E43 Unspecified severe protein-calorie malnutrition; K57.92 Diverticulitis of intestine, part unspecified, without perforation or abscess without bleeding; G92 Toxic encephalopathy; E83.42 Hypomagnesemia; E87.2 Acidosis; N39.0 Urinary tract infection, site not specified; N13.2 Hydronephrosis with renal and ureteral calculous obstruction; B96.20 Unspecified Escherichia coli [E. coli] as the cause of diseases classified elsewhere; F41.9 Anxiety disorder, unspecified; F32.9 Major depressive disorder, single episode, unspecified; D63.8 Anemia in other chronic diseases classified elsewhere; B95.2 Enterococcus as the cause of diseases classified elsewhere; G62.9 Polyneuropathy, unspecified; D50.9 Iron deficiency anemia, unspecified; D72.829 Elevated white blood cell count, unspecified; N18.9 Chronic kidney disease, unspecified; K59.00 Constipation, unspecified; R74.0 Nonspecific elevation of levels of transaminase and lactic acid dehydrogenase [LDH]; K29.40 Chronic atrophic gastritis without bleeding; Z96.641 Presence of right artificial hip joint
CPT/HCPCS: 36415; 70450-TC; 71045-TC; 74018; 80048-TC; 80053-TC; 80061-TC; 80076-TC; 81000-TC; 82247-TC; 82248-TC; 82306; 82728-TC; 83540-TC; 83605-TC; 83735-TC; 84100-TC; 84155; 84165; 84439-TC; 84443-TC; 84484-TC; 85025-TC; 85730-TC; 87040-TC; 87081-TC; 87086-TC; 87186-TC; 88307-TC; 88313-TC; 88342; 93307-TC; 94799-TC; 97116-TC; 97530-TC; A4217; A4606; A6402; C2617; C9113; J1100; J2405; J2543; J2704; J2916; J3475; J3490; J7030; J7040; J7060; Q0163; Q9966; Z7610

== ENCOUNTER 2017-09-03 14:01 | Outpatient (CLI) | payer MEDICARE ==
[~2017-09-03 14:01] MED LIST: CITA20TA16 PO; GABA-534 PO; HYDR-3972 PO; IRON1TAB96 PO; LEVO500T75 PO
[2017-09-03 14:10] VITALS: BP 147/71
[2017-09-03 14:11] VITALS: BP 147/71
[2017-09-09] MEDS ORDERED: LINE600T PO (12:01)
[2017-09-09] MEDS ORDERED: LACT1CAP71 PO (12:01)
== END 2017-09-03 23:59 | disposition home or self-care (01) ==
LOC: MSC 14:01
PROVIDERS: ATTEND Internal Medicine
DX: N39.0 Urinary tract infection, site not specified (principal); R11.2 Nausea with vomiting, unspecified; B95.2 Enterococcus as the cause of diseases classified elsewhere; B96.20 Unspecified Escherichia coli [E. coli] as the cause of diseases classified elsewhere; N18.9 Chronic kidney disease, unspecified; N20.0 Calculus of kidney; Z96.0 Presence of urogenital implants; G62.9 Polyneuropathy, unspecified; F32.9 Major depressive disorder, single episode, unspecified; F41.8 Other specified anxiety disorders; I25.10 Atherosclerotic heart disease of native coronary artery without angina pectoris

== ENCOUNTER 2017-09-03 14:41 | Outpatient (CLI) | payer MEDICARE ==
[2017-09-03 16:38] LABS: CALCIUM, SERUM 9.1 mg/dL (8.5-10.1); CARBON DIOXIDE 26 mmol/L (21-32); CHLORIDE 103 mmol/L (98-107); CREATININE 0.9 mg/dL (0.6-1.3); GLUCOSE 126 mg/dL (74-106); POTASSIUM 3.2 mmol/L (3.5-5.1); SODIUM SERUM 139 mmol/L (136-145); UREA NITROGEN, BLOOD 11 mg/dL (7-18)
[2017-09-03 16:42] LABS: EOSINOPHILS % (AUTO) 0.3 % (0.0-6.0); HEMATOCRIT 36 % (33-45); HEMOGLOBIN 10.3 g/dL (11.5-14.8); LYMPHOCYTES # (AUTO) 1.1 /CMM (0.8-4.8); MEAN CORPUSCULAR HGB CONC 28 g/dl (31.0-36.0); MEAN CORPUSCULAR VOLUME 102 fL (82-100); MONOCYTES # (AUTO) 0.4 /CMM (0.1-1.30); MONOCYTES % (AUTO) 1.9 % (2.0-12.0); NEUTROPHILS # (AUTO) 19.7 /CMM (1.8-8.9); NEUTROPHILS % (AUTO) 92.8 % (43.0-81.0); PLATELET COUNT (AUTO) 449 /CMM (150-450); RDW COEFFICIENT OF VARIATION 17.9 (11.5-15.0); RED BLOOD CELL COUNT(AUTO) 3.55 MIL/uL (4.0-5.2); WHITE BLOOD COUNT (AUTO) 21.2 K/uL (4.3-11.0)
[2017-09-03 18:58] LABS: APPEARANCE,URINE CLOUDY (CLEAR); BILIRUBIN,URINE NEGATIVE (NEGATIVE); BLOOD, URINE 3+ Ery/uL (NEGATIVE); COLOR,URINE YELLOW (YELLOW); KETONES,URINE NEGATIVE (NEGATIVE); LEUKOCYTE ESTERASE ,URINE 1+ (NEGATIVE); NITRITE, URINE NEGATIVE (NEGATIVE); PROTEIN,URINE 2+ mg/dl (NEGATIVE); UGLUCOSE NEGATIVE (NEGATIVE); UROBILINOGEN,URINE 0.2 EU/dL (0.2)
[2017-09-03 19:15] LABS: BACTERIA,URINE None seen /HPF (None Seen); RBC,URINE TOO NUMEROUS TO COUN /HPF (0-2); SQUAMOUS EPITHELIAL CELL,UR Few /HPF (None Seen)
[2017-09-09] MEDS ORDERED: LINE600T PO (12:01)
[2017-09-09] MEDS ORDERED: LACT1CAP71 PO (12:01)
== END 2017-09-03 23:59 | disposition home or self-care (01) ==
LOC: LAB 14:41
PROVIDERS: ATTEND Internal Medicine
DX: N39.0 Urinary tract infection, site not specified (principal); B95.2 Enterococcus as the cause of diseases classified elsewhere
CPT/HCPCS: 36415; 80048-TC; 81000-TC; 85025-TC; 87086-TC; 87186-TC

== ENCOUNTER 2017-09-06 12:04 | Outpatient (CLI) | payer MEDICARE ==
[2017-09-06 12:25] VITALS: BP 110/60
[2017-09-09] MEDS ORDERED: LACT1CAP71 PO (12:01)
[2017-09-09] MEDS ORDERED: LINE600T PO (12:01)
== END 2017-09-06 23:59 | disposition other institution (70) ==
LOC: MSC 12:04
PROVIDERS: ATTEND Internal Medicine
DX: A41.9 Sepsis, unspecified organism (principal); N39.0 Urinary tract infection, site not specified; B95.2 Enterococcus as the cause of diseases classified elsewhere; B96.20 Unspecified Escherichia coli [E. coli] as the cause of diseases classified elsewhere; Z16.21 Resistance to vancomycin; N18.9 Chronic kidney disease, unspecified; R41.82 Altered mental status, unspecified; N20.0 Calculus of kidney; Z96.0 Presence of urogenital implants; G62.9 Polyneuropathy, unspecified; F41.8 Other specified anxiety disorders; I25.10 Atherosclerotic heart disease of native coronary artery without angina pectoris

== ENCOUNTER 2017-09-06 13:06 | Inpatient (IN) | payer MEDICARE ==
[~2017-09-06] VITALS: Ht 157.5 cm; Wt 53.5 kg
[2017-09-06 13:24] LABS: BASOPHILS # (AUTO) 0.1 /CMM (0.0-0.2); BASOPHILS % (AUTO) 1.7 % (0.0-2.0); EOSINOPHILS % (AUTO) 1.8 % (0.0-6.0); HEMATOCRIT 27 % (33-45); LYMPHOCYTES # (AUTO) 1.5 /CMM (0.8-4.8); LYMPHOCYTES % (AUTO) 19.6 % (20.0-44.0); MEAN CORPUSCULAR HGB CONC 33 g/dl (31.0-36.0); MEAN CORPUSCULAR VOLUME 87 fL (82-100); MONOCYTES # (AUTO) 0.6 /CMM (0.1-1.30); MONOCYTES % (AUTO) 8.2 % (2.0-12.0); NEUTROPHILS # (AUTO) 5.5 /CMM (1.8-8.9); NEUTROPHILS % (AUTO) 68.7 % (43.0-81.0); PLATELET COUNT (AUTO) 417 /CMM (150-450); RDW COEFFICIENT OF VARIATION 16.4 (11.5-15.0); RED BLOOD CELL COUNT(AUTO) 3.12 MIL/uL (4.0-5.2); WHITE BLOOD COUNT (AUTO) 7.8 K/uL (4.3-11.0)
--- NOTE | 2017-09-06 13:25 | NUR ---
CALLED DR HARLEY NÚÑEZ OFFICE AND A PAGE WAS SENT OUT TO HIM.
[2017-09-06] MEDS ORDERED: LINEZOLID RTU BAG 600 MG in PREMIX 1 EA IV SCH (13:30)
[2017-09-06] MEDS ORDERED: LINEZOLID RTU BAG 600 MG in PREMIX 1 EA IV ONE (13:35)
[2017-09-06 13:36] LABS: CARBON DIOXIDE 28 mmol/L (21-32); CHLORIDE 104 mmol/L (98-107); CREATININE 0.9 mg/dL (0.6-1.3); GLUCOSE 87 mg/dL (74-106); POTASSIUM 3.4 mmol/L (3.5-5.1); SODIUM SERUM 140 mmol/L (136-145); UREA NITROGEN, BLOOD 11 mg/dL (7-18)
[2017-09-06 13:39] LABS: INR 1.04 (0.85-1.15)
[2017-09-06 13:42] LABS: ALANINE AMINOTRANSFERASE 27 U/L (12-78); ALBUMIN 2.2 g/dL (3.4-5.0); ALKALINE PHOSPHATASE 208 U/L (46-116); ASPARTATE AMINOTRANSFERASE 30 U/L (15-37); BILIRUBIN,DIRECT 0.1 mg/dL (0.0-0.2); BILIRUBIN,TOTAL 0.3 mg/dL (0.2-1.0); TOTAL PROTEIN, SERUM 7.1 g/dL (6.4-8.2)
[2017-09-06 13:44] LABS: TROPONIN I < 0.017 ng/mL (0.00-0.056)
--- NOTE | 2017-09-06 13:47 | NUR ---
CALLED PANEL AND DR ANNE WAS PAGED.
--- NOTE | 2017-09-06 13:52 | NUR ---
CALLED NURSING DEMI CHEF AND REQUESTED A TELE BED FOR THIS PT.
[2017-09-06] MEDS ORDERED: PIPERACILLIN /TAZOBACTAM 3.375 G in IV D5W 50 ML IV ONE (14:00)
[2017-09-06] MEDS ORDERED: PIPERACILLIN /TAZOBACTAM 3.375 G in IV D5W 100 ML IV ONE (14:00)
--- NOTE | 2017-09-06 14:11 | NUR ---
PT IS ASSIGNED TO [facility]# [id number], PT IS DIAGNOSED WITH SEPSIS AND UTI, AND DR ANNE IS THE ACCEPTING MD.
[2017-09-06] MEDS ORDERED: ACETAMINOPHEN 325 MG TABLET PO PRN (15:00)
[2017-09-06] MEDS ORDERED: HYDROCODONE/APAP 5/325MG 1 EACH TABLET PO PRN ×2 (15:00)
[2017-09-06] MEDS ORDERED: ZOLPIDEM TARTRATE 5 MG TABLET PO PRN (15:00)
[2017-09-06] MEDS ORDERED: MAG HYDROX/AL HYDROX/SIMETH 30 ML UDC PO PRN (15:00)
[2017-09-06] MEDS ORDERED: ONDANSETRON HCL/PF 4 MG/2 ML VIAL IVP PRN (15:00)
[2017-09-06] MEDS ORDERED: MAGNESIUM HYDROXIDE 30 ML UDC PO PRN (15:00)
[2017-09-06] MEDS ORDERED: Z GUARD REMEDY 2 OZ OINT TP PRN (15:00)
[2017-09-06 15:30] VITALS: BP 136/70
--- NOTE | 2017-09-06 15:30 | NUR ---
Tele/RN - Admission Patient awake, A/O x 4, denies abdominal pain, no evidence of resp. distress, on 2 lpm via NC, admitted for UTI/Sepsis under Dr. Nunez. Tele shows SR. Kwong (from ER) infusing well on the RFA with no complications. Skin is intact, refused photo to be taken. All belongings verified and secured in the unit. Patient oriented to the unit and use of call light. All needs anticipated and met. Patient and family educated on the treatment plan. Admission orders noted and implemented. Fall and aspiration precautions initiated. Will continue to monitor closely.
[2017-09-06 16:06] VITALS: BP 136/70
[2017-09-06] MEDS: IV NS 0.9% 1,000 ML IV PRN (16:42)
--- NOTE | 2017-09-06 17:36 | NUR ---
Tele/RN - Notes Patient in no acute distress, remain afebrile, denies pain, on 2lpm via NC. Continue NS at 75 ml/hr to maintain hydration and IV Zosyn for UTI. All needs attended and met. Will continue with current medical management.
[2017-09-06] MEDS: PIPERACILLIN /TAZOBACTAM 2.25 G in IV D5W 50 ML IV SCH (17:40)
--- NOTE | 2017-09-06 19:45 | NUR ---
MS RN NOTES RECEIVED ON BED A/O X3,BREATHING REGULAR,NOT IN ANY FORM OF DISTRESS.O2 IN USED AT 2L/NC TO KEEP O2 SAT ABOVE 90%.IVF NS AT 75 ML/HR RATE IN PROGRESS VIA IV PUMP ON RFA,SITE PATENT.FAMILY MEMBERS AT BEDSIDE,CALLLIGHT IN REACH,NEEDS ANTICIPATED.
[2017-09-06 20:00] VITALS: BP 127/76
[2017-09-06] MEDS ORDERED: PIPERACILLIN /TAZOBACTAM 3.375 G in IV D5W 100 ML IV SCH (21:00)
[2017-09-07] VITALS: BP 114/60
[2017-09-07] MEDS: PIPERACILLIN /TAZOBACTAM 2.25 G in IV D5W 50 ML IV SCH ×2 (00:12→05:28)
[2017-09-07 04:00] VITALS: BP 138/85
--- NOTE | 2017-09-07 06:46 | NUR ---
DIAGNOSTICS SALES DEVELOPER NOTES IV ABX TOLERATED WELL.SLEPT WELL WITH BENADRYL GIVEN BY FAMILY.AMBULATE WELL WITH WALKER TO THE TOILET.WILL FOLLOW UP WITH DR ANNE TODAY REGARDING GABAPENTIN 300MG BID SCHEDULED,NOT PRN.IN NO ACUTE DISTRESS.WILL ENDORSE TO DAY NURSE FOR GUNNAR.
[2017-09-07 07:08] LABS: BASOPHILS # (AUTO) 0.1 /CMM (0.0-0.2); BASOPHILS % (AUTO) 0.7 % (0.0-2.0); EOSINOPHILS % (AUTO) 2.7 % (0.0-6.0); HEMATOCRIT 25 % (33-45); HEMOGLOBIN 8.6 g/dL (11.5-14.8); LYMPHOCYTES # (AUTO) 1.6 /CMM (0.8-4.8); LYMPHOCYTES % (AUTO) 21.6 % (20.0-44.0); MEAN CORPUSCULAR HGB CONC 34 g/dl (31.0-36.0); MEAN CORPUSCULAR VOLUME 87 fL (82-100); MONOCYTES # (AUTO) 0.6 /CMM (0.1-1.30); MONOCYTES % (AUTO) 7.7 % (2.0-12.0); NEUTROPHILS # (AUTO) 4.7 /CMM (1.8-8.9); NEUTROPHILS % (AUTO) 67.3 % (43.0-81.0); PLATELET COUNT (AUTO) 411 /CMM (150-450); RDW COEFFICIENT OF VARIATION 15.8 (11.5-15.0); RED BLOOD CELL COUNT(AUTO) 2.91 MIL/uL (4.0-5.2); WHITE BLOOD COUNT (AUTO) 7.2 K/uL (4.3-11.0)
[2017-09-07 07:16] LABS: CALCIUM, SERUM 8.3 mg/dL (8.5-10.1); CARBON DIOXIDE 28 mmol/L (21-32); CHLORIDE 105 mmol/L (98-107); CREATININE 0.8 mg/dL (0.6-1.3); GLUCOSE 81 mg/dL (74-106); MAGNESIUM 1.8 mg/dL (1.8-2.4); PHOSPHORUS 3.2 mg/dL (2.5-4.9); POTASSIUM 3.6 mmol/L (3.5-5.1); SODIUM SERUM 142 mmol/L (136-145); UREA NITROGEN, BLOOD 8 mg/dL (7-18)
--- NOTE | 2017-09-07 07:42 | NUR ---
RIVET MAKER OPENING NOTE RECEIVED BEDSIDE SBAR REPORT ON THE PATIENT. PATIENT IS A/O X3.PATIENT ASLEEP EASILY AWAKEN IN BED. IN BED. BED IS LOCKED, IN LOWEST POSITION, SITE RAILS UP X2. AMBULATORY WITH ASSIST AND ORIENTED TO OWN ABILITIES. DENIES PAIN/DISCOMFORT. CHEST RAISING EQUALLY/BILATERALLY. EXTERNAL WATER HAULER READING SR85 WITH PVCs. SPO2 96% ON 2L OXYGEN. CALL LIGHT WITHIN REACH. EDUCATED TO CALL FOR ASSISTANCE USING THE CALL LIGHT. VERBALIZED UNDERSTANDING. WILL CONTINUE TO ASSESS/MONITOR THROUGHOUT THE SHIFT.
[2017-09-07 08:00] VITALS: BP 120/52
[2017-09-07] MEDS ORDERED: CITALOPRAM HYDROBROMIDE 20 MG TABLET PO SCH (09:00)
[2017-09-07] MEDS: GABAPENTIN 300 MG CAPSULE PO PRN ×2 (09:22→22:35)
[2017-09-07] MEDS: IV NS 0.9% 1,000 ML IV PRN (13:25)
[2017-09-07] MEDS: LINEZOLID RTU BAG 600 MG in PREMIX 1 EA IV SCH ×2 (13:28→20:39)
[2017-09-07 16:00] VITALS: BP 115/64
--- NOTE | 2017-09-07 17:54 | NUR ---
FAMILY/PATIENT REPORTED ALLERGY TO ZOLPIDEM MEDICATION COMPLETED.
--- NOTE | 2017-09-07 17:57 | NUR ---
RECEIVED VERBAL ORDER FOR FERROUS SULFATE [address] ANNE. READ BACK AND VERIFIED.
--- NOTE | 2017-09-07 19:09 | NUR ---
MS RN CLOSING NOTE PATIENT IS A/O X3.PATIENT ASLEEP EASILY AWAKEN IN BED. IN BED. BED IS LOCKED, IN LOWEST POSITION, SITE RAILS UP X2. AMBULATORY WITH ASSIST AND ORIENTED TO OWN ABILITIES. DENIES PAIN/DISCOMFORT. CHEST RAISING EQUALLY/BILATERALLY. EXTERNAL ELECTRIC POWER LINE REPAIRER READING SR85 WITH PVCs. SPO2 96% ON 2L OXYGEN. CALL LIGHT WITHIN REACH. EDUCATED TO CALL FOR ASSISTANCE USING THE CALL LIGHT. VERBALIZED UNDERSTANDING. WILL ENDORSE TO THE FENCE INSTALLER NURSE FOR GUNNAR.
--- NOTE | 2017-09-07 19:10 | NUR ---
RN OPENING NOTE PT AWAKE AND RESTING IN BED. NO COMPLAINTS OF PAIN, SOB, OR DISTRESS AT THIS TIME. PT AMBULATORY WITH ASSIST. PT HAS A RIGHT FOREARM IV #20 RUNNING 75ML/HR. PT TOLERATING WELL. PT ON 2L OF 02 VIA NASAL CANNULA. SAFETY PRECAUTIONS IN PLACE. BED IN LOWEST, LOCKED POSITION, X2 SIDE RAILS UP, CALL LIGHT WITHIN REACH. WILL CONTINUE TO MONITOR.
[2017-09-07 20:00] VITALS: BP 136/70
[2017-09-08 06:25] LABS: BASOPHILS # (AUTO) 0.1 /CMM (0.0-0.2); BASOPHILS % (AUTO) 0.8 % (0.0-2.0); EOSINOPHILS % (AUTO) 2.9 % (0.0-6.0); HEMATOCRIT 24 % (33-45); HEMOGLOBIN 7.8 g/dL (11.5-14.8); LYMPHOCYTES # (AUTO) 1.5 /CMM (0.8-4.8); LYMPHOCYTES % (AUTO) 22.3 % (20.0-44.0); MEAN CORPUSCULAR HGB CONC 33 g/dl (31.0-36.0); MEAN CORPUSCULAR VOLUME 87 fL (82-100); MONOCYTES # (AUTO) 0.6 /CMM (0.1-1.30); MONOCYTES % (AUTO) 8.6 % (2.0-12.0); NEUTROPHILS # (AUTO) 4.4 /CMM (1.8-8.9); NEUTROPHILS % (AUTO) 65.4 % (43.0-81.0); PLATELET COUNT (AUTO) 357 /CMM (150-450); RDW COEFFICIENT OF VARIATION 17.1 (11.5-15.0); RED BLOOD CELL COUNT(AUTO) 2.71 MIL/uL (4.0-5.2); WHITE BLOOD COUNT (AUTO) 6.8 K/uL (4.3-11.0)
[2017-09-08 06:39] LABS: CALCIUM, SERUM 8.1 mg/dL (8.5-10.1); CARBON DIOXIDE 28 mmol/L (21-32); CHLORIDE 105 mmol/L (98-107); CREATININE 0.7 mg/dL (0.6-1.3); GLUCOSE 85 mg/dL (74-106); MAGNESIUM 1.7 mg/dL (1.8-2.4); PHOSPHORUS 2.7 mg/dL (2.5-4.9); POTASSIUM 3.2 mmol/L (3.5-5.1); SODIUM SERUM 140 mmol/L (136-145); UREA NITROGEN, BLOOD 7 mg/dL (7-18)
--- NOTE | 2017-09-08 06:49 | NUR ---
RN CLOSING NOTE PT AWAKE AND RESTING IN BED. NO COMPLAINTS OF PAIN, SOB, OR DISTRESS OVERNIGHT. PT AMBULATORY WITH ASSIST. PT HAS A RIGHT FOREARM IV #20 RUNNING 75ML/HR. PT TOLERATING WELL. PT ON 2L OF VIA NASAL CANNULA. SAFETY PRECAUTIONS IN PLACE. BED IN LOWEST, LOCKED POSITION, X2 SIDE RAILS UP, CALL LIGHT WITHIN REACH. WILL ENDORSE TO DAY SHIFT NURSE FOR CONTINUITY OF CARE.
--- NOTE | 2017-09-08 07:49 | NUR ---
MS RN OPENING NOTE RECEIVED BEDSIDE SBAR REPORT ON THE PATIENT. PATIENT IS A/O X3.PATIENT ASLEEP EASILY AWAKEN IN BED. IN BED. BED IS LOCKED, IN LOWEST POSITION, SITE RAILS UP X2. AMBULATORY WITH ASSIST AND ORIENTED TO OWN ABILITIES. DENIES PAIN/DISCOMFORT. CHEST RAISING EQUALLY/BILATERALLY. SPO2 97% ON 2L OXYGEN. CALL LIGHT WITHIN REACH. EDUCATED TO CALL FOR ASSISTANCE USING THE CALL LIGHT. VERBALIZED UNDERSTANDING. WILL CONTINUE TO ASSESS/MONITOR THROUGHOUT THE SHIFT.
[2017-09-08 08:00] VITALS: BP 124/67
[2017-09-08 08:24] VITALS: BP 124/67
[2017-09-08] MEDS: FERROUS SULFATE (325 MG) 325 MG/TAB TABLET PO SCH ×2 (08:52→18:04)
[2017-09-08] MEDS: LINEZOLID RTU BAG 600 MG in PREMIX 1 EA IV SCH (09:01)
[2017-09-08] MEDS: IV NS 0.9% 1,000 ML IV PRN (09:01)
[2017-09-08] MEDS: POTASSIUM CHLORIDE 20 MEQ TAB.PRT.SR PO SCH ×2 (11:31→12:43)
[2017-09-08] MEDS: Magnesium 1GM/D5W 100ML PREMIX 100 ML IV SCH ×2 (11:31→12:43)
--- NOTE | 2017-09-08 12:41 | NUR ---
RECEIVED ORDER FROM DR. BARKER TO COLLECT URINE CULTURE. READ BACK AND VERIFIED. ORDER PLACED. URINE COLLECTED/LABELED. LAB NOTIFIED.
[2017-09-08] MEDS: GABAPENTIN 300 MG CAPSULE PO PRN (15:20)
--- NOTE | 2017-09-08 15:22 | NUR ---
PATIENT COMPLAINS OF HEADACHE. VS WNL. TYLENOL ADMINISTERED ORDERED.
[2017-09-08 16:00] VITALS: BP 103/53
--- NOTE | 2017-09-08 18:17 | NUR ---
RECEIVED ORDER FROM DR ANNE FOR BENADRYL 50 MG Q8 HRS PRN ALLERGIC REACTION. READ BACK AND VERIFIED.
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
[2017-09-08] MEDS ORDERED: diphenhydrAMINE HCL 50 MG CAPSULE PO PRN (19:30)
--- NOTE | 2017-09-08 19:30 | NUR ---
RN OPENING NOTE PT AWAKE AND RESTING IN BED. NO COMPLAINTS OF PAIN, SOB, OR DISTRESS AT THIS TIME. PT AMBULATORY WITH ASSIST. PT HAS A RIGHT FOREARM IV #20 INTACT AND PATENT. PT ON 2L VIA NASAL CANNULA. SAFETY PRECAUTIONS IN PLACE. BED IN LOWEST, LOCKED POSITION, X2 SIDE RAILS UP, CALL LIGHT WITHIN REACH. WILL CONTINUE TO MONITOR.
[2017-09-08 20:00] VITALS: BP 130/63
[2017-09-08] MEDS ORDERED: MEROPENEM 500 MG VIAL IV ONE (20:26)
[2017-09-08] MEDS: LINEZOLID 600 MG TABLET PO SCH (20:36)
--- NOTE | 2017-09-09 06:40 | NUR ---
RN CLOSING NOTE PT AWAKE AND RESTING IN BED. NO COMPLAINTS OF PAIN, SOB, OR DISTRESS OVERNIGHT. PT AMBULATORY WITH ASSIST. PT HAS A RIGHT FOREARM IV #20 INTACT AND PATENT. PT ON 2L OF VIA NASAL CANNULA. SAFETY PRECAUTIONS IN PLACE. BED IN LOWEST, LOCKED POSITION, X2 SIDE RAILS UP, CALL LIGHT WITHIN REACH. WILL ENDORSE TO DAY SHIFT NURSE FOR CONTINUITY OF CARE.
--- NOTE | 2017-09-09 07:17 | NUR ---
MS RN OPENING NOTE RECEIVED BEDSIDE SBAR REPORT ON THE PATIENT. PATIENT IS A/O X2-3, CONFUSED AT TIMES, FORGETFUL OF SPECIFIC DATES. PATIENT ASLEEP EASILY AWAKEN IN BED. IN BED. BED IS LOCKED, IN LOWEST POSITION, SITE RAILS UP X2. AMBULATORY WITH ASSIST. BED ALARM IS ON. PATIENT INSTRUCTED NOT TO GET OUT OF THE BED ALONE AND CALL FOR ASSISTANCE USING THE CALL LIGHT. CALL LIGHT WITHIN REACH. VERBALIZED UNDERSTANDING. PATIENT IS CURRENTLY IN DIAPER PER PATIENT'S OWN REQUEST. PATIENT ASKED TO HAVE A DIAPER ON NOT TO GET OUT OF THE BED [place] FREQUENTLY AND TO HAVE AN UNINTERRUPTED SLEEP THROUGHOUT THE NIGHT. DENIES PAIN/DISCOMFORT. CHEST RAISING EQUALLY/BILATERALLY. SPO2 97% ON 2L OXYGEN. WILL CONTINUE TO ASSESS/MONITOR THROUGHOUT THE SHIFT.
[2017-09-09 07:52] LABS: BASOPHILS # (AUTO) 0.1 /CMM (0.0-0.2); BASOPHILS % (AUTO) 1.2 % (0.0-2.0); EOSINOPHILS % (AUTO) 2.8 % (0.0-6.0); HEMATOCRIT 27 % (33-45); HEMOGLOBIN 8.9 g/dL (11.5-14.8); LYMPHOCYTES # (AUTO) 1.4 /CMM (0.8-4.8); LYMPHOCYTES % (AUTO) 20.6 % (20.0-44.0); MEAN CORPUSCULAR HGB CONC 33 g/dl (31.0-36.0); MEAN CORPUSCULAR VOLUME 87 fL (82-100); MONOCYTES # (AUTO) 0.4 /CMM (0.1-1.30); MONOCYTES % (AUTO) 6.3 % (2.0-12.0); NEUTROPHILS # (AUTO) 4.6 /CMM (1.8-8.9); NEUTROPHILS % (AUTO) 69.1 % (43.0-81.0); PLATELET COUNT (AUTO) 413 /CMM (150-450); RDW COEFFICIENT OF VARIATION 17.4 (11.5-15.0); RED BLOOD CELL COUNT(AUTO) 3.12 MIL/uL (4.0-5.2); WHITE BLOOD COUNT (AUTO) 6.7 K/uL (4.3-11.0)
[2017-09-09 08:00] VITALS: BP 141/73
[2017-09-09 08:11] LABS: CALCIUM, SERUM 8.5 mg/dL (8.5-10.1); CARBON DIOXIDE 25 mmol/L (21-32); CHLORIDE 104 mmol/L (98-107); CREATININE 0.7 mg/dL (0.6-1.3); GLUCOSE 79 mg/dL (74-106); PHOSPHORUS 2.3 mg/dL (2.5-4.9); POTASSIUM 3.4 mmol/L (3.5-5.1); SODIUM SERUM 138 mmol/L (136-145); UREA NITROGEN, BLOOD 4 mg/dL (7-18)
[2017-09-09] MEDS: FERROUS SULFATE (325 MG) 325 MG/TAB TABLET PO SCH (09:00)
[2017-09-09] MEDS: LINEZOLID 600 MG TABLET PO SCH (09:01)
--- NOTE | 2017-09-09 11:49 | NUR ---
OBTAINED AN ORDER FROM DR ANNE TO REQUEST DISC WITH CT SCAN TO GIVE TO THE PATIENT.
[2017-09-09] MEDS ORDERED: LINE600T PO (12:01)
[2017-09-09] MEDS ORDERED: LACT1CAP71 PO (12:01)
[2017-09-09] MEDS ORDERED: POTASSIUM CHLORIDE 20 MEQ TAB.PRT.SR PO SCH (12:15)
--- NOTE | 2017-09-09 12:37 | NUR ---
DOCTOR ANNE DISCUSSED ALL ASSESSMENT FINDINGS/PATIENT EMR AND PLAN OF CARE AT THE BEDSIDE WITH THE PATIENT/FAMILY. DISCHARGE ORDER RECEIVED. DISCHARGE INFORMATION/EDUCATION PROVIDED TO PATIENT/CAREGIVER AT THE BEDSIDE. PAPERWORK GIVEN TO PATIENT/FAMILY. [facility] AT [address] [place] [address], [place] [address] ON SUNDAY, September AT 1315 GIVEN TO PATIENT/FAMILY. ALL BELONGINGS ARE ACCOUNTED FOR. IV CATHETER REMOVED WITH THE TIP INTACT. OCLUSIVE DRESSING APPLIED. PATIENT TOLERATED PROCEDURE WELL. CD FROM RADIOLOGY RECEIVED AND GIVEN TO THE PATIENT/FAMILY AT THE BEDSIDE. ALL QUESTIONS ANSWERED. PATIENT/FAMILY VERBALIZED UNDERSTANDING OF ALL THE TEACHINGS/INSTRUCTIONS. VS WNL. SPO2 95% ON ROOM AIR. PATIENT IS AMBULATORY WITH WALKER. PATIENT IS BEING DISCHARGED TO THE PRIVATE RESIDENCE OF HER SON NATALYA.
--- NOTE | 2017-09-09 13:19 | NUR ---
PATIENT LEFT THE UNIT IN STABLE CONDITION.
== END 2017-09-09 13:16 | disposition home health service (06) | DRG 689 ==
LOC: ER 13:07 → TELE 14:23 → MED 09-07 08:54
PROVIDERS: ADMIT Internal Medicine; ATTEND Internal Medicine
DX: N10 Acute pyelonephritis (principal); E43 Unspecified severe protein-calorie malnutrition; D63.8 Anemia in other chronic diseases classified elsewhere; E88.09 Other disorders of plasma-protein metabolism, not elsewhere classified; E78.5 Hyperlipidemia, unspecified; E87.6 Hypokalemia; F17.200 Nicotine dependence, unspecified, uncomplicated; Z87.442 Personal history of urinary calculi; M19.90 Unspecified osteoarthritis, unspecified site; N13.6 Pyonephrosis; Z16.21 Resistance to vancomycin; Z68.21 Body mass index [BMI] 21.0-21.9, adult; I10 Essential (primary) hypertension; K29.70 Gastritis, unspecified, without bleeding; Z96.641 Presence of right artificial hip joint
CPT/HCPCS: 36415; 71045-TC; 80048-TC; 80076-TC; 81000-TC; 83605-TC; 83735-TC; 84100-TC; 84484-TC; 85025-TC; 85730-TC; 87040-TC; 87081-TC; 87086-TC; 87186-TC; 94799-TC; A4216; A4606; J2020; J2185; J2543; J3475; J7030; J7060; Z7610

== ENCOUNTER 2017-09-13 11:00 | Outpatient (CLI) | payer MEDICARE ==
[~2017-09-13 11:00] MED LIST changes: +LACT1CAP71 PO; +LINE600T PO
[2017-09-13 11:11] VITALS: BP 117/62
== END 2017-09-13 23:59 | disposition home or self-care (01) ==
LOC: MSC 11:00
PROVIDERS: ATTEND Internal Medicine
DX: N39.0 Urinary tract infection, site not specified (principal); B95.2 Enterococcus as the cause of diseases classified elsewhere; Z16.21 Resistance to vancomycin; I25.10 Atherosclerotic heart disease of native coronary artery without angina pectoris; I12.9 Hypertensive chronic kidney disease with stage 1 through stage 4 chronic kidney disease, or unspecified chronic kidney disease; N18.9 Chronic kidney disease, unspecified; N20.0 Calculus of kidney; Z96.0 Presence of urogenital implants; G62.9 Polyneuropathy, unspecified; F41.8 Other specified anxiety disorders